=== PATIENT | female | born 1995 | race Two or more races ===

== ENCOUNTER 2018-03-13 13:59 | Emergency (ER) | payer MEDICAID, OTHER ==
[~2018-03-13] VITALS: Ht 157.5 cm; Wt 79.5 kg
[2018-03-13] MEDS ORDERED: PREN-96 PO (15:17)
[2018-03-13 17:05] VITALS: BP 107/41
== END 2018-03-13 16:30 | disposition home or self-care (01) ==
LOC: ER 13:59 → EDBD 13:59 → LDRP 14:25
PROVIDERS: ADMIT Obstetrics & Gynecology; ATTEND Obstetrics & Gynecology
DX: O9A.213 Injury, poisoning and certain other consequences of external causes complicating pregnancy, third trimester (principal); S20.229A Contusion of unspecified back wall of thorax, initial encounter; R10.9 Unspecified abdominal pain; Z3A.36 36 weeks gestation of pregnancy; V43.62XA Car passenger injured in collision with other type car in traffic accident, initial encounter; Y93.89 Activity, other specified; Y99.8 Other external cause status; Y92.410 Unspecified street and highway as the place of occurrence of the external cause
CPT/HCPCS: 59025; 76818; 81002; G0378